=== PATIENT | male | born 1985 | race Caucasian/White ===

== ENCOUNTER 2017-09-06 06:25 | Emergency (ER) | payer MEDICAID ==
--- NOTE | 2017-09-06 07:11 | EDPHY ---
H & P Smoking Status: Current some day smoker Time Seen by Provider: 09/06/17 07:00 HPI/ROS: HPI Depression, suicidal thoughts. 31-year-old male on foot. This patient has a history of depression and bipolar disorder. He reports that he has been feeling more depressed lately. He reports he has had suicidal thoughts. He states that he would try to commit suicide by overdosing on his clonidine. He has not taking any medication tonight. He admits to drinking alcohol about 6 hr ago. He recently moved from [place] to [place]. He is currently unemployed. He states that his depression stems from long running family issues and his living situation. He currently does not have a psychologist or psychiatrist. ROS: Constitutional: No fever, no chills. No weakness. Eyes: No discharge. No changes in vision. ENT: No sore throat. No nasal congestion or rhinorrhea. Respiratory: No cough. No shortness of breath. Cardiac: No chest pain, no palpitations. Gastrointestinal: No abdominal pain, no vomiting, no diarrhea. Genitourinary: No hematuria. No dysuria or increased frequency with urination. Musculoskeletal: No back pain. No neck pain. No myalgias or arthralgias. Skin: No rashes. Neurological: No headache. No focal weakness or altered sensation. Past medical history: Depression, bipolar. As above. Social history: Drinks alcohol. Denies IV drugs and street drugs. Nonsmoker. Physical Exam: General Appearance: Alert, no distress. Disheveled. This patient is responding to questions appropriately and in full sentences. This patient appears well-hydrated and well-nourished. Eyes: Pupils equal and round no pallor or injection. No lid edema, erythema or injection. Respiratory: There are no retractions, lungs are clear to auscultation with good air movement bilaterally. Cardiovascular: Regular rate and rhythm. No murmur. Gastrointestinal: Abdomen is soft and nontender, no masses, bowel sounds normal. No focal tenderness at McBurney's point. No Rsoario sign. Neurological: Motor sensory function is grossly intact. Cranial nerves are normal. Gait is normal. Skin: Warm and dry, no rashes. Musculoskeletal: Neck is supple and nontender. Extremities are symmetrical. All joints range without pain or impingement. Psychiatric: No agitation. Flat affect. Database: EKG: Imaging: Procedures: Emergency department course: 7:10 a.m., the patient was medically cleared for behavioral health evaluation. Behavioral Health is aware. Appropriate blood work ordered. Vital signs reviewed. Patient mildly tachycardic in triage. He is not tachycardic on my exam. 1:30 p.m., the patient has been seen and evaluated by Behavioral Health. They are planning on admitting him to a [facility]SU. He was placed on an M1 hold for transport. He was given 1 mg of Ativan orally for anxiety. 3:00 p.m., patient awaits transfer to CSU. Care turned over to Dr. Blayne Yanez at this time. Differential Diagnosis: The differential diagnosis on this patient includes but is not limited to situational depression, major depression, suicidal ideation, bipolar. This represents a partial list of diagnoses considered. These considerations are based on history, physical exam, past history, reassessment and diagnostic testing. (Marci Fuentes) Constitutional: Initial Vital Signs Temperature (C) 36.6 C 09/06/17 06:32 Heart Rate 108 H 09/06/17 06:32 Respiratory Rate 18 09/06/17 06:32 Blood Pressure 125/88 H 09/06/17 06:32 O2 Sat (%) 94 09/06/17 06:32 O2 Delivery Mode Room Air O2 (L/minute) 99 Allergies/Adverse Reactions: No Known Allergies Allergy (Unverified 09/06/17 06:32) Home Medications: Medication Instructions Recorded Clonidine 09/06/17 Medical Decision Making ED Course/Re-evaluation: Patient remained stable. He was transferred to crisis stabilization unit. ( Blayne Yanez) - Data Points Laboratory Results: Laboratory Results 09/06/17 07:30 09/06/17 07:30 Medications Given: Discontinued Medications Lorazepam (Ativan) 1 mg PO EDNOW ONE Stop: 09/06/17 13:35 Last Admin: 09/06/17 13:38 Dose: 1 mg Departure - Departure Disposition: Other Psych, Not [place] Clinical Impression: Depression, Alcohol intoxication Referrals: NONE *PRIMARY CARE P,. [Primary Care Provider] - As per Instructions
[2017-09-06 07:50] LABS: PLATELET COUNT 240 10^3/uL (150-400)
[2017-09-06] MEDS ORDERED: LORazepam 1 MG TAB PO ONE (13:34)
[2017-09-06] MEDS ORDERED: LORazepam 1 MG TAB ONE (13:37)
[2017-09-06 16:46] VITALS: RESP 16
[2017-09-06 20:23] VITALS: BP 120/84; PULSE 100; TEMP 97.9; O2SAT 94
== END 2017-09-06 21:13 ==
DX: F32.9 Major depressive disorder, single episode, unspecified (principal); F10.129 Alcohol abuse with intoxication, unspecified
CPT/HCPCS: 80305; G0480

== ENCOUNTER 2017-09-17 03:40 | Emergency (ER) | payer MEDICAID ==
[2017-09-17 03:52] VITALS: BP 115/81; PULSE 85; RESP 18; TEMP 98.1; O2SAT 98
--- NOTE | 2017-09-17 03:54 | EDPHY ---
H & P Time Seen by Provider: 09/17/17 03:48 HPI/ROS: Chief Complaint: Depression, suicidal thoughts HPI: 31-year-old male was out walking this morning after leaving his residence. Patient states that he has a history of depression and was having suicidal thoughts earlier. He had a plan to overdose on a bottle of pills. Patient states that he did not take anything actually left the residence where he had access to the pills. He has been walking around for the last couple of hours. He called 911 with concerns of thoughts of suicide. He is also complaining of some dizziness. Patient states that he has been drinking a half a bottle alcohol over the course of the last day. Has not been drinking much water. He does have a history of depression in the past was suicide attempts in the past. Denies any fevers or chills. No nausea or vomiting. No chest pain or shortness of breath. No fainting. Patient was brought in by EMS. loan officer assistant is here and states that he has a warrant out for his arrest. They are requesting that the patient be medically cleared. They will take him to residential and placed him on a mental health hold there and allowed the doctors at the residential to evaluate him. Patient is currently otherwise without complaint. My ROS PMH: Depression Social History: No smoking, positive for alcohol, denies any other drug use Family History: non-contributory Physical Exam: Gen: Awake, Alert, No Distress HEENT: Nose: no rhinorrhea Eyes: PERRLA, EOMI Mouth: Moist mucosa Neck: Supple, no JVD Chest: nontender, lungs clear to auscultation Heart: S1, S2 normal, no murmur Abd: Soft, non-tender, no guarding Back: no CVA tenderness, no midline tenderness Ext: no edema, non-tender Skin: no rash Neuro: CN II-XII intact, Sensation grossly intact, Strength 5/5 in bilateral upper and lower extremities - Medical/Surgical History Hx Asthma: No Hx Chronic Respiratory Disease: No Hx Diabetes: No Hx Cardiac Disease: No Hx Renal Disease: No Hx Cirrhosis: No Hx Alcoholism: No Hx HIV/AIDS: No Hx Splenectomy or Spleen Trauma: No - Social History Smoking Status: Current some day smoker Constitutional: Initial Vital Signs Temperature (C) 36.7 C 09/17/17 03:49 Heart Rate 85 09/17/17 03:49 Respiratory Rate 18 01/29/18 03:49 Blood Pressure 115/81 H 09/17/17 03:49 O2 Sat (%) 98 09/17/17 03:49 O2 Delivery Mode Room Air Allergies/Adverse Reactions: No Known Allergies Allergy (Unverified 09/06/17 06:32) Home Medications: Medication Instructions Recorded Clonidine 09/06/17 Medical Decision Making ED Course/Re-evaluation: 31-year-old male with depression and suicidal thoughts. No acute medical process at this time. He is medically clear for residential. He will get mental health evaluation per police department. Departure - Departure Disposition: Law Enforcement/Court/Half-Way Clinical Impression: Depression Condition: Fair Instructions: Depression (ED) Additional Instructions: MEDICALLY CLEAR FOR LONGTERM Referrals: Patient,NotPresent [Unknown] - As per Instructions
== END 2017-09-17 04:19 ==
LOC: EDUNIT#
DX: F32.9 Major depressive disorder, single episode, unspecified (principal); F17.200 Nicotine dependence, unspecified, uncomplicated